=== PATIENT | male | born 1940 | race Caucasian/White ===

== ENCOUNTER → 2018-04-26 | Outpatient (CLI) | payer OTHER ==
[2015-01-31 10:50] VITALS: BP 146/75
[~2018-04-26] MED LIST: AMLO10TA6 PO; ARIP1SOL PO; ASPI-482 PO; ATORVASTATIN CA80 MG PO; BARIUM SULFATE 40% (APPLE) 148 GM PWD. PO ONE; BUPR100T11 PO; CARV25TA2 PO; CETI10TA16 PO; FLUT10SP NS; HYDR12.575 PO; LORA1TAB PO; LOSA1TAB25 PO; METF10007 PO; MIRT30TA6 PO; NITR100C62 PO; OMEP20CA9 PO; PIOG30TA41 PO; POLY119P4 PO; POTA10TA12 PO; SERT100T8 PO; TERA5CAP3 PO; [UNRECOGNIZED DRUG - CODE] VG
--- NOTE | 2018-04-26 17:36 | RAD ---
Exam: Video Swallowing Study Date: 04/26/2018 History: Clinical suspicion for aspiration Comparison: None Procedure: Video fluoroscopy of the neck was performed from the lateral projection following ingestion of various- consistency barium including thin, puree, solid and mixed consistency barium which was administered by the speech pathologist. Findings/ Impression: There was no laryngeal penetration or aspiration of the various consistencies of barium observed. Please see speech pathology's report for further details of examination. Electronically signed by: Jaxon Archuleta MD (04/26/2018 5:32 PM) [facility]
== END | disposition home or self-care (01) ==
LOC: RAD 12:18
PROVIDERS: ATTEND Nurse Practitioner
DX: J18.1 Lobar pneumonia, unspecified organism (principal)
CPT/HCPCS: 74230; 92611